=== PATIENT | male | born 1980 | race African-American/Black ===

== ENCOUNTER 2017-07-11 11:57 | Emergency (ER) | payer BC ==
[~2017-07-11] VITALS: Ht 162.6 cm; Wt 104.0 kg
[2017-07-11] MEDS ORDERED: FAMOTIDINE 20MG/2ML VIAL IV STA (12:35)
[2017-07-11] MEDS ORDERED: ONDANSETRON HCL 4MG/2ML VIAL IV STA (12:35)
[2017-07-11] MEDS ORDERED: SODIUM CHLORIDE 0.9% 1,000 ML IV ONE (12:35)
[2017-07-11] MEDS ORDERED: MORPHINE SULFATE 4 MG/ML CPJ (NOT FOR IM USE) IV STA (12:35)
[2017-07-11 13:44] LABS: BASOPHILS % 0.3 % (0.0-2.0); HEMATOCRIT. 45.3 % (42.0-52.0); HEMOGLOBIN. 15.2 g/dL (14.0-18.0); LYMPHOCYTES % 12.3 % (20.0-50.0); MEAN CORPUSCULAR HEMOGLOBIN 28.9 pg (28.0-32.0); NEUTROPHILS % 79.4 % (40.0-76.0); PLATELET 225 x1000/uL (130-400); RED BLOOD CELL COUNT 5.27 mill/uL (4.7-6.1); RED CELL DISTRIBUTION WIDTH 15.2 % (11.6-14.6)
[2017-07-11 13:47] LABS: CHLORIDE 103 mEq/L (98-107)
[2017-07-11 13:50] LABS: INR 1.1; PARTIAL THROMBOPLASTIN TIME 25.6 sec (23.4-31.0); PROTHROMBIN TIME 11.1 sec (9.4-11.6)
[2017-07-11 13:52] LABS: ETHANOL BLOOD < 10 mg/dL
[2017-07-11 15:18] LABS: CLARITY URINE CLEAR (CLEAR); COLOR URINE YELLOW (YELLOW); KETONES URINE TRACE (NEGATIVE); LEUKOCYTE ESTERASE URINE NEGATIVE (NEGATIVE); NITRITE URINE NEGATIVE (NEGATIVE); OCCULT BLOOD URINE NEGATIVE (NEGATIVE); PROTEIN URINE NEGATIVE (NEGATIVE); SPECIFIC GRAVITY URINE 1.017 (1.005-1.030); UROBILINOGEN URINE 0.2 E.U./dL (0.2-1.0)
[2017-07-11 15:49] LABS: *COCAINE SCREEN URINE NEGATIVE (NEGATIVE)
[2017-07-11 15:51] LABS: *AMPHETAMINES SCREEN URINE NEGATIVE (NEGATIVE); *BARBITURATES SCREEN URINE NEGATIVE (NEGATIVE); *BENZODIAZEPINES SCREEN URINE NEGATIVE (NEGATIVE); CANNABINOID URINE SCREEN NEGATIVE (NEGATIVE); METHADONE URINE SCREEN NEGATIVE (NEGATIVE); OPIATES URINE SCREEN NEGATIVE (NEGATIVE); PHENCYCLIDINE URINE SCREEN NEGATIVE (NEGATIVE)
[2017-07-11 16:01] VITALS: BP 135/85
== END 2017-07-11 16:05 | disposition home or self-care (01) ==
LOC: ER 13:25
DX: R10.13 Epigastric pain (principal); R11.2 Nausea with vomiting, unspecified; Z98.890 Other specified postprocedural states
CPT/HCPCS: 36415; 74176; 80053; 80305; 81003; 83690; 85025; 85610; 85730; 96361; 96374; 96375; 99285; G0482; J2270; J2405; J3490; J7030; Z7610